=== PATIENT | male | born 1990 | race American Indian/Alaskan Native ===

== ENCOUNTER 2019-03-08 06:49 | Emergency (ER) | payer MEDICAID ==
[2019-03-08] MEDS ORDERED: MORPHINE 4 MG/1 ML INJ IV ONE ×2 (07:15→08:17)
[2019-03-08] MEDS ORDERED: ONDANSETRON 4 MG/2 ML INJ IV ONE (07:15)
[2019-03-08] MEDS ORDERED: SODIUM CHLORIDE 0.9% 500 ML 500 ML IV ONE ×2 (07:15→09:30)
--- NOTE | 2019-03-08 07:19 | Emergency Department Report ---
HPI - General Chief Complaint: Abdominal Pain Time Seen by Provider: 03/08/19 07:10 - HPI HPI: 28-year-old -[place] male presents to the emergency department via EMS with complaint of nausea and vomiting, generalized pain, that appears to be a withdrawal from methadone. Patient has a history of Crohn's disease and end- stage renal disease but is not on hemodialysis. He says that his "levels go up and down" and he did not want to be on dialysis. Therefore, the patient says that he was on hospice and was receiving methadone as treatment for his pain. There appears to have been either some lapse or some change to where he is not currently in hospice and is no longer receiving the methadone. He does not have a primary care physician or deputy [employer]. No fever.. This patient has been to this emergency department and hospital in the past including an admission last week. For some reason, this patient has been created a new medical record account. I looked at and it shows the patient's admission on 03/01/19 for acute kidney injury superimposed on CKD with volume depletion and some electrolyte imbalances. He had a CT scan of the abdomen and pelvis at that time that did not show any acute process. His creatinine on admission was about 7.9 and was down to about 1.9 upon discharge. ED Past Medical Hx - Past Medical History Previous Medical History?: Yes Hx Renal Disease: Yes - Social History Smoking Status: Current Some Day Smoker Substance Use Type: None ED Review of Systems ROS: Stated complaint: N/V Other details as noted in HPI Comment: All other systems reviewed and negative Constitutional: denies: chills, fever Respiratory: denies: cough, shortness of breath Cardiovascular: denies: chest pain, edema Gastrointestinal: nausea, vomiting Genitourinary: denies: dysuria, discharge Physical Exam - Physical Exam Vital Signs: Vital Signs 03/08/19 07:00 Temperature 97.8 F Pulse Rate 83 Respiratory 18 Rate Blood Pressure 113/71 [Left] O2 Sat by Pulse 95 Oximetry Physical Exam: GENERAL: Thin habitus. Patient is actively vomiting. HENT: Normocephalic. Atraumatic. Patient has moist mucous membranes. EYES: Extraocular motions are intact. NECK: Supple. Trachea is midline. CHEST/LUNGS: Clear to auscultation. There is no respiratory distress noted. HEART/CARDIOVASCULAR: Regular. There is no tachycardia. There is no murmur. ABDOMEN: Abdomen is soft. Mild epigastric soreness/tenderness to palpation but no guarding.. Patient has normal bowel sounds. There is no abdominal distention. Colostomy bag in place. SKIN: Skin is warm and dry. NEURO: The patient is awake, alert, and oriented. The patient is cooperative. The patient has no focal neurologic deficits. Normal speech. MUSCULOSKELETAL: There is no tenderness or deformity. There is no evidence of acute injury. ED Course Vital Signs 03/08/19 07:00 Temperature 97.8 F Pulse Rate 83 Respiratory 18 Rate Blood Pressure 113/71 [Left] O2 Sat by Pulse 95 Oximetry ED Medical Decision Making - Lab Data Result diagrams: 03/08/19 08:46 03/08/19 08:46 - Radiology Data Radiology results: image reviewed interpreted by me: Abdominal x-ray shows nonspecific nonobstructive bowel gas - Medical Decision Making This patient presents to the emergency department with a complaint of nausea, vomiting, abdominal pain. Initially the patient is actively vomiting and he required 2 doses of Zofran and 1 of Reglan to get this under control. The patient is consistently asking for narcotic pain medication. He says that he is too weak to leave a urine sample but can easily get up, walk out into the hallway, and however over the nurses desks to ask for narcotic pain medication. The patient's labs have been mostly unremarkable. There is a slight elevation in the AST level. Despite the patient's history of chronic kidney disease and recent kidney failure, this appears to have resolved as he currently has a GFR of 60 and a creatinine level of 1.4. Abdominal x-ray shows nonspecific nonobstructive bowel gas. I looked this patient up on the [facility] prescription monitoring system and he recently was getting methadone and morphine from a palliative care physician, Dr. Lyle. He also received a small prescription for Percocet when he was discharged from this hospital 2 days ago and it appears that this has run out. Overall I think the patient is experiencing opiate withdrawal symptoms. I spoke with the patient regarding the possibility of getting detox/rehabilitation assistance, even possibly inpatient. The patient says that he is interested in finding another hospice or palliative care program. At this time he does not appear to need it for his alleged end-stage renal disease, but he also says it is for chronic pain secondary to his Crohn's disease. He does not appear interested in any type of rehabilitation or detox, and therefore may need a pain clinic or pain physician. I explained to him that I would not be writing any narcotic pain medication for him. When he heard this, the patient demanded the IV be taken out and eloped from the emergency department without any discharge paperwork or referrals. - Differential Diagnosis viral syndrome, gastroparesis, bowel obstruction, opiate withdrawal Critical Care Time: No Critical care attestation.: If time is entered above; I have spent that time in minutes in the direct care of this critically ill patient, excluding procedure time. ED Disposition Clinical Impression: Opiate withdrawal Nausea & vomiting Qualifiers: Vomiting type: unspecified Vomiting Intractability: non-intractable Qualified Code(s): R11.2 - Nausea with vomiting, unspecified Abdominal pain Qualifiers: Abdominal location: generalized Qualified Code(s): R10.84 - Generalized abdominal pain Disposition: ELOPED Is pt being admited?: No Condition: Stable Instructions: Acute Nausea and Vomiting (ED), Abdominal Pain (ED), Opioid Withdrawal (ED) Additional Instructions: Please follow-up with a primary care physician in the next few days. You may need to contact a pain management clinic or physician regarding your chronic pains. Increase your oral rehydration. Follow up with nephrology. Return to the emergency Department with any worsening of your symptoms, intractable vomiting, or with any acute distress. Referrals: ROXANNE RAPP MD [Staff Physician] - 2-3 Days [facility] [Outside] - 2-3 Days Time of Disposition: 10:10
[2019-03-08] MEDS ORDERED: ONDANSETRON 4 MG/2 ML INJ IM ONE (07:51)
[2019-03-08] MEDS ORDERED: MORPHINE 4 MG/1 ML INJ IM ONE (07:51)
[2019-03-08 09:02] VITALS: BP 124/67
--- NOTE | 2019-03-08 09:04 | XRay Report ---
ABDOMEN 2 VIEWS INDICATION / CLINICAL INFORMATION: Abd pain. COMPARISON: None available. FINDINGS: Nonspecific bowel gas pattern. No definite evidence of obstruction or pneumoperitoneum. Signer Name: Ryan Hutton MD FACEdel Signed: 03/08/2019 9:00 AM Workstation Name: [id number]
[2019-03-08 09:05] LABS: Basophils % (Auto) 0.6 % (0.0-1.8); Eosinophils % (Auto) 0.2 % (0.0-4.3); Hematocrit 28.6 % (35.5-45.6); Hemoglobin 9.3 gm/dl (11.8-15.2); Lymphocytes # (Auto) 0.8 K/mm3 (1.2-5.4); Lymphocytes % (Auto) 9.7 % (13.4-35.0); Mean Corpuscular HGB Conc 32 % (32-34); Mean Corpuscular Volume 87 fl (84-94); Monocytes # (Auto) 0.9 K/mm3 (0.0-0.8); Monocytes % (Auto) 11.5 % (0.0-7.3); Platelet Count 349 K/mm3 (140-440); Red Blood Count 3.29 M/mm3 (3.65-5.03); Red Cell Distribution Width 15.5 % (13.2-15.2)
[2019-03-08] MEDS ORDERED: METOCLOPRAMIDE 10 MG/2 ML INJ IV ONE (09:05)
[2019-03-08] MEDS ORDERED: METOCLOPRAMIDE 10 MG/2 ML INJ ONE (09:08)
[2019-03-08 09:24] LABS: Alanine Aminotransferase 45 units/L (7-56); Albumin 3.6 g/dL (3.9-5); BUN/Creatinine Ratio 12; Blood Urea Nitrogen 17 mg/dL (9-20); Hemolysis Index 3
== END 2019-03-08 10:15 | disposition left against medical advice (07) ==
LOC: EDBD → ED 06:49
DX: F11.23 Opioid dependence with withdrawal (principal); R11.2 Nausea with vomiting, unspecified; R10.84 Generalized abdominal pain; K50.90 Crohn's disease, unspecified, without complications; N18.6 End stage renal disease; F17.200 Nicotine dependence, unspecified, uncomplicated; Z88.0 Allergy status to penicillin; Z91.013 Allergy to seafood; Z88.8 Allergy status to other drugs, medicaments and biological substances
CPT/HCPCS: 36415; 74019; 80053; 85025; 96361; 96372; 96374; 96375; 99284; J2270; J2405; J2765; J7040; 80320; G0480